=== PATIENT | female | born 1995 | race Caucasian/White ===

== ENCOUNTER 2021-12-30 01:49 | Emergency (ER) | payer OTHER ==
[2021-12-30] MEDS ORDERED: GI Cocktail Oral Solution 30 ML PO ONE (02:11)
[2021-12-30] MEDS ORDERED: Promethazine 25 MG/ML SDV IM ONE (02:12)
== END 2021-12-30 03:00 | disposition home or self-care (01) ==
LOC: VM.ED 01:49
DX: K21.00 Gastro-esophageal reflux disease with esophagitis, without bleeding (principal)
CPT/HCPCS: 96372; 99283; A9270; J2550; 93010; 99284